=== PATIENT | female | born 1950 | race African-American/Black ===

== ENCOUNTER 2018-10-03 09:32 | Emergency (ER) ==
[2018-10-03 09:37] VITALS: BP 178/89; TEMP 97.6; BMI 32.8
--- NOTE | 2018-10-03 10:51 | CT ---
Exam: CT cervical spine without intravenous contrast. Comparison: None available. Reason for exam: Neck pain with left-sided radiculopathy. FINDINGS: No acute fracture or listhesis. The vertebral body and intervertebral body disc space hei ghts are well maintained. There is preservation of the cervical lordotic curve. The dens appears in tact. Mucosal thickening is seen in the ethmoid sinuses. Impression: No acute fracture or listhesis in the cervical spine. Mild mucosal thickening in the ethmoid sinuses.
--- NOTE | 2018-10-03 11:33 | CT ---
Exam: CT left shoulder without intravenous contrast. Comparison: None available. Reason for exam: Pain. FINDINGS: No acute fracture or dislocation. The left humeral head articulates to the bony glenoid. The clavicle appears intact. Mild degenerative disease is seen with subchondral cyst formation in t he acromion. No unexplained calcific soft tissue density or radiopaque retained foreign body. Impression: No acute fracture or dislocation is seen in the left shoulder.
--- NOTE | 2018-10-03 11:35 | CT ---
EXAM: CT of the thoracic spine without contrast History: Thoracic back pain. Technique: Multiplanar CT images through the thoracic spine were obtained without the administration of IV contrast Findings: Calcified granulomas are seen within the thorax. The visualized lungs are free of infiltr ate. No acute fracture or subluxation. Mild to moderate multilevel disc space narrowing with a few promin ent anterior osteophytes. No suspicious lytic or blastic osseous lesions. Prominent posterior facet hypertrophy at T9-10 on the right which is effacing the posterior right thecal sac and causing moder ate right paracentral canal stenosis. Impression: 1. No acute osseous abnormality of the thoracic spine. 2. Mild to moderate degenerative disc disease. 3. Prominent right posterior facet hypertrophy at T9-10 with moderate right paracentral canal stenos is
--- NOTE | 2018-10-03 12:27 | ED.PDOC ---
General ED Provider: Dr. RAMIN GONZALEZ Chief Complaint: Shoulder Pain/Injury Stated Complaint: LEFT SIDED NECK PAIN , SHOULDER PAIN DENIED CHEST PAIN Time Seen by Physician: 09:33 (SEEN WITH NURSE AT ALL TIMES ) Mode of Arrival: Walk-In Information Source: Patient Exam Limitations: No limitations Primary Care Provider: ESME DUGGAN Nursing and Triage Documentation Reviewed and Agree: Yes Does patient meet sepsis criteria?: No System Inflammatory Response Syndrome: Not Applicable Sepsis Protocol: For patient's 13 years and over: Temp is 96.8 and below OR 101 and greater Pulse >90 BPM Resp >20/minute Acutely Altered Mental Status Are patient's symptoms suggestive of a new infection, such as: -Pneumonia -Skin, Soft Tissue -Endocarditis -UTI -Bone, Joint Infection -Implantable Device -Acute Abdominal Infection -Wound Infection -Meningitis -Blood Stream Catheter Infection -Unknown Past Medical History - Past Medical History Last Menstrual Period: na - Social History Smoking Status: Never smoker Hx Substance Use: No Alcohol Screening: Occasionally - Immunizations Tetanus Shot up to Date: No Course - Course Orders, Labs, Meds: Orders Category Date Time Status CT CERVICAL SPINE W/O CONTRAST Stat RADS 10/03/18 09:[address] SHOULDER LEFT W/O CONTRAST Stat RADS 10/03/18 10:[address] THORACIC SPINE W/O CONTRAST Stat RADS 10/03/18 10:57 Completed Vital Signs: Temp Pulse Resp BP Pulse Ox 10/03/18 09:33 97.6 F 83 16 178/89 H 100 Departure - Departure Allergies/Adverse Reactions: Allergies quinine Allergy (Severe, Verified 10/03/18 09:39) Rash Penicillins Allergy (Intermediate, Verified 10/03/18 09:39) Swelling Home Medications: Ambulatory Orders Dexlansoprazole [Dexilant] 60 mg PO DAILY 04/23/13 Estradiol 0.5 mg PO DAILY 04/23/13 Lisinopril 10 mg PO DAILY 04/23/13 Nabumetone 750 mg PO BID 04/23/13 Insulin NPH Human Isophane [Novolin N] 20 units SQ BID 10/03/18
--- NOTE | 2018-10-03 12:38 | ED.PDOC ---
General ED Provider: Dr. RAMIN GONZALEZ Chief Complaint: Shoulder Pain/Injury Stated Complaint: shoulder pain, neck pain left arm pain with upper ext movements Time Seen by Physician: 09:45 (radha present) Mode of Arrival: Walk-In Information Source: Patient Exam Limitations: No limitations Primary Care Provider: ESME DUGGAN Nursing and Triage Documentation Reviewed and Agree: Yes Does patient meet sepsis criteria?: No System Inflammatory Response Syndrome: Not Applicable Sepsis Protocol: For patient's 13 years and over: Temp is 96.8 and below OR 101 and greater Pulse >90 BPM Resp >20/minute Acutely Altered Mental Status Are patient's symptoms suggestive of a new infection, such as: -Pneumonia -Skin, Soft Tissue -Endocarditis -UTI -Bone, Joint Infection -Implantable Device -Acute Abdominal Infection -Wound Infection -Meningitis -Blood Stream Catheter Infection -Unknown Musculoskeletal Complaint Exam - Neck Pain Complaint/Exam Mechanism of Injury: Reports: No known trauma, Other (left sided neck pain worse by the motion of the left upper ext pain radiated down left arm , pain is entirely reproduceable) Onset/Duration: chronic Symptoms Are: Still present Timing: Intermittent Episodes Lasting: Days Initial Severity: Mild Current Severity: Mild Location: Reports: Discrete Character: Reports: Aching Aggravating: Reports: None Alleviating: Reports: None Associated Signs and Symptoms: Denies: Swelling, Redness, Bruising, Fever, Nuchal rigidity, Weakness, Headache, Paresthesia Related History: Reports: Similar episode Meningitis Risk Factors: Reports: None Related Surgical History: Reports: None Carotid Bruit Present: No Pain on Passive Flexion: No Positive Kernig's Sign: No Focal Weakness: Present: None Focal Sensory Loss: Reports: None Nexus Low Risk Criteria: No evidence of intoxicat., No Altered LOC, No focal neuro deficit, No distracting injuries Differential Diagnoses: Sprain, Strain, Other (cervical spine radiculopathy) Review of Systems - Review Of Systems Constitutional: Reports: No symptoms Eyes: Reports: No symptoms Ears, Nose, Mouth, Throat: Reports: No symptoms Respiratory: Reports: No symptoms Cardiac: Reports: No symptoms GI: Reports: No symptoms : Reports: No symptoms Musculoskeletal: Reports: Neck pain Skin: Reports: No symptoms Neurological: Reports: No symptoms Endocrine: Reports: No symptoms Hematologic/Lymphatic: Reports: No symptoms All Other Systems: Reviewed and Negative Past Medical History - Past Medical History Previously Healthy: Yes Endocrine: Reports: DM 1 Cardiovascular: Reports: Hypertension Respiratory: Reports: None Hematological: Reports: None Gastrointestinal: Reports: None Genitourinary: Reports: None Neuro/Psych: Reports: None Musculoskeletal: Reports: None Cancer: Reports: None Last Menstrual Period: na - Surgical History General Surgical History: Reports: None - Family History Family History: Reports: None - Social History Smoking Status: Never smoker Hx Substance Use: No Alcohol Screening: Occasionally - Immunizations Tetanus Shot up to Date: No Physical Exam - Physical Exam Appearance: Well-appearing, No pain distress, Well-nourished Eyes: KISHA, EOMI, Conjunctiva clear ENT: Ears normal, Nose normal, Oropharynx normal Respiratory: Airway patent, Breath sounds clear, Breath sounds equal, Respirations nonlabored Cardiovascular: RRR, Pulses normal, No rub, No murmur GI/: Soft, Nontender, No masses, Bowel sounds normal, No Organomegaly Musculoskeletal: Normal strength, ROM intact, No edema, No calf tenderness Skin: Warm, Dry, Normal color Neurological: Sensation intact, Motor intact, Reflexes intact, Cranial nerves intact, Alert, Oriented Psychiatric: Affect appropriate, Mood appropriate Interpretation - Radiology Interpretation Radiology Interpretation By: Radiologist Radiology Results: No acute changes Exam Interpreted: CT Scan Re-Evaluation - Re-Evaluation Time of Re-Evaluation: 12:40 Status: Unchanged Vital Signs Stable: Yes Appearance: NAD Lungs: Clear Skin: Warm and Dry Neuro: Alert and Oriented X3 CV: RRR Additional Comments: with may at bedisde noted the reproduceable pain, educated pt about angina Critical Care Note - Critical Care Note Total Time (mins): 0 Course - Course Orders, Labs, Meds: Orders Category Date Time Status CT CERVICAL SPINE W/O CONTRAST Stat RADS 10/03/18 09:[address] SHOULDER LEFT W/O CONTRAST Stat RADS 10/03/18 10:[address] THORACIC SPINE W/O CONTRAST Stat RADS 10/03/18 10:57 Completed Vital Signs: Temp Pulse Resp BP Pulse Ox 10/03/18 09:33 97.6 F 83 16 178/89 H 100 Departure - Departure Time of Disposition: 12:41 Disposition: HOME SELF-CARE Discharge Problem: Shoulder pain, Cervical radiculopathy Instructions: Neck Pain (ED), Acute Neck Pain (ED), Cervical Radiculopathy (ED) Condition: Good Pt referred to PMD for follow-up: Yes IPMP verified?: No Additional Instructions: Please call your Family Physician as soon as possible to schedule a follow-up appointment. Allergies/Adverse Reactions: Allergies quinine Allergy (Severe, Verified 10/03/18 09:39) Rash Penicillins Allergy (Intermediate, Verified 10/03/18 09:39) Swelling Home Medications: Ambulatory Orders Dexlansoprazole [Dexilant] 60 mg PO DAILY 04/23/13 Estradiol 0.5 mg PO DAILY 04/23/13 Lisinopril 10 mg PO DAILY 04/23/13 Nabumetone 750 mg PO BID 04/23/13 Insulin NPH Human Isophane [Novolin N] 20 units SQ BID 10/03/18 Disposition Discussed With: Patient
== END 2018-10-03 12:53 | disposition home or self-care (01) ==
LOC: ED 09:32
DX: M54.2 Cervicalgia (principal); M54.12 Radiculopathy, cervical region; M25.512 Pain in left shoulder; E10.9 Type 1 diabetes mellitus without complications; I10 Essential (primary) hypertension; Z79.4 Long term (current) use of insulin; Z79.899 Other long term (current) drug therapy
CPT/HCPCS: 99282